=== PATIENT | female | born 1945 | race Caucasian/White ===

== ENCOUNTER → 2024-05-23 | Outpatient (CLI) | payer MEDICARE | END | disposition home or self-care (01) | LOC: LAB SHORT 14:15 → LAB 14:15 | DX: M65.30 Trigger finger, unspecified finger (principal); N30.10 Interstitial cystitis (chronic) without hematuria; R94.4 Abnormal results of kidney function studies; Z76.89 Persons encountering health services in other specified circumstances | CPT/HCPCS: 85651 ==

== ENCOUNTER → 2024-06-11 | Outpatient (CLI) | payer MEDICARE ==
[2024-06-12 10:02] LABS: Stool Occult Bld Immuno 1 Negative (NEGATIVE)
== END ==
LOC: LAB SHORT 07:32 → LAB 07:32 → LAB FUT 06-05 16:30
PROVIDERS: Student in an Organized Health Care Education/Training Program
DX: D64.9 Anemia, unspecified (principal)
CPT/HCPCS: 82274